=== PATIENT | male | born 1965 | race Caucasian/White ===

== ENCOUNTER 2025-07-08 16:18 | Emergency (ER) | payer BC ==
[2025-07-08 18:11] VITALS: BP 142/95; PULSE 93
[2025-07-08 19:02] LABS: BASOPHILS ABSOLUTE AUTO 0.1 K/mm3 (0.0-0.2); BASOPHILS PERCENT AUTO 2.0 % (0.0-1.0); EOSINOPHILS ABSOLUTE AUTO 0.2 K/mm3 (0.0-0.4); EOSINOPHILS PERCENT AUTO 3.0 % (0.0-6.0); IMMATURE GRAN ABSOLUTE AUTO 0.01 K/mm3 (0.00-0.05); IMMATURE GRAN PERCENT AUTO 0.1 % (0.0-0.4); LYMPHOCYTES ABSOLUTE AUTO 1.1 K/mm3 (1.0-4.8); LYMPHOCYTES PERCENT AUTO 15.8 % (24.0-44.0); MEAN PLATELET VOLUME 10.5 fl (9.4-12.4); MONOCYTES ABSOLUTE AUTO 1.3 K/mm3 (0.0-0.8); MONOCYTES PERCENT AUTO 18.9 % (0.0-8.0); NEUTROPHILS ABSOLUTE AUTO 4.3 K/mm3 (1.8-7.7); NEUTROPHILS PERCENT AUTO 60.2 % (41.0-71.0); NRBC ABSOLUTE 0.00 (0.00-0.02); NRBC PERCENT 0.0 % (0.0-0.2); PLATELET COUNT,PLT 195 K/mm3 (150-400); RED BLOOD CELL COUNT 4.60 M/mm3 (4.52-5.90); WHITE BLOOD CELL COUNT,WBC 7.09 K/mm3 (3.9-11.3)
[2025-07-08 19:23] LABS: A/G RATIO 0.6 (1-2); ALANINE AMINOTRANSFERASE,ALT 32.0 U/L (16-63); ASPARTATE AMNIOTRANSFERASE,AST 52.0 U/L (15-37); BILIRUBIN TOTAL 1.0 mg/dL (0.2-1.0); BLOOD UREA NITROGEN,BUN 16.0 mg/dL (7-18); CARBON DIOXIDE,CO2 29.0 mEq/L (21-32); CHLORIDE,CL 104.0 mEq/L (98-107); CREATININE 1.3 mg/dL (0.7-1.3); EST CRCL DRUG DOSING (CG) 62.39 mL/min; ESTIMATED GFR 63.0 mL/min (>60); GLUCOSE RANDOM 104.0 mg/dL (70-99); POTASSIUM,K 4.4 mEq/L (3.5-5.1); PROTEIN TOTAL,TP 7.5 g/dl (6.4-8.2); SODIUM,NA 140.0 mEq/L (136-145)
== END 2025-07-08 20:54 | disposition other institution (70) ==
LOC: JD.ED 16:18
DX: L03.115 Cellulitis of right lower limb (principal); I10 Essential (primary) hypertension; E78.00 Pure hypercholesterolemia, unspecified; E11.9 Type 2 diabetes mellitus without complications; Z89.411 Acquired absence of right great toe; Z88.8 Allergy status to other drugs, medicaments and biological substances; Z79.899 Other long term (current) drug therapy
CPT/HCPCS: 36415; 80053; 85025; 85652; 86140; 93971; 99284; A9270